=== PATIENT | female | born 1945 | race Hispanic/Latino ===

== ENCOUNTER → 2024-02-11 | Outpatient (CLI) | payer MEDICARE, MEDICAID ==
[~2024-02-11] MED LIST: AMLO1TAB24 PO; ELIQ5TAB PO; LISI40TA4 PO; METO1TAB32 PO; PRAV40TA2 PO; URSO1TAB8 PO
[2024-02-11 17:28] LABS: HEMATOCRIT 38.9 % (36.0-47.0); HEMOGLOBIN 12.6 g/dl (12.0-15.5); MEAN CORPUSCULAR HEMOGLOBIN 34.8 pg (27.0-33.0); MEAN CORPUSCULAR HGB CONC 32.4 g/dl (32.0-36.5); MEAN CORPUSCULAR VOLUME 107.5 fl (80.0-96.0); PLATELET COUNT, AUTOMATED 201 10^3/uL (150-450); RED BLOOD COUNT 3.62 10^6/uL (4.00-5.40); WHITE BLOOD COUNT 5.3 10^3/uL (4.0-10.0)
[2024-02-11 17:31] LABS: BILIRUBIN,TOTAL 0.5 MG/DL (0.3-1.2); CALCIUM LEVEL 9.2 MG/DL (8.3-10.6); CREATININE FOR GFR 1.39 MG/DL (0.55-1.30); GLOMERULAR FILTRATION RATE 38.8 (>32); POTASSIUM SERUM 4.4 MMOL/L (3.5-5.1); TOTAL PROTEIN 6.8 G/DL (5.7-8.2)
== END ==
LOC: M RAD 12:44
PROVIDERS: ATTEND Family Medicine Addiction Medicine
DX: M25.562 Pain in left knee (principal); M51.36 Other intervertebral disc degeneration, lumbar region; K74.60 Unspecified cirrhosis of liver; N18.30 Chronic kidney disease, stage 3 unspecified; M85.89 Other specified disorders of bone density and structure, multiple sites

== ENCOUNTER → 2024-03-06 | Outpatient (CLI) | payer MEDICARE, MEDICAID ==
[~2024-03-06] MED LIST changes: +LIDOCAINE 1% MDV 20ML VIAL As Ordered ONE
[2024-03-06 08:05] VITALS: TEMP 97.9
[2024-03-06 09:38] VITALS: BP 193/89; O2SAT 99
== END ==
LOC: M IRPRO 07:42
PROVIDERS: ATTEND Specialist
DX: C34.90 Malignant neoplasm of unspecified part of unspecified bronchus or lung (principal); R91.8 Other nonspecific abnormal finding of lung field

== ENCOUNTER 2024-05-06 10:09 | Emergency (ER) | payer MEDICARE, MEDICAID ==
[~2024-05-06 10:09] MED LIST changes: -LIDOCAINE 1% MDV 20ML VIAL As Ordered ONE
[2024-05-06 10:56] LABS: BASO % 0.4 % (0.0-1.0); EOS # 0.1 10^3/uL (0.0-0.5); HEMATOCRIT 34.7 % (36.0-47.0); HEMOGLOBIN 11.5 g/dl (12.0-15.5); LYMPH % 12.1 % (24.0-44.0); MEAN CORPUSCULAR HEMOGLOBIN 35.3 pg (27.0-33.0); MEAN CORPUSCULAR HGB CONC 33.1 g/dl (32.0-36.5); MEAN CORPUSCULAR VOLUME 106.4 fl (80.0-96.0); MONO # 0.8 10^3/uL (0.0-0.8); MONO % 9.4 % (2.0-8.0); NEUTROPHILS # 6.4 10^3/uL (1.5-8.5); NEUTROPHILS % 76.6 % (36.0-66.0); PLATELET COUNT, AUTOMATED 162 10^3/uL (150-450); RED BLOOD COUNT 3.26 10^6/uL (4.00-5.40); WHITE BLOOD COUNT 8.3 10^3/uL (4.0-10.0)
[2024-05-06 12:09] LABS: CK-MB VALUE MASS < 1.0 NG/ML (<3.6); LIPASE 21 U/L (12-53)
[2024-05-06 12:11] LABS: CPK CREATINE PHOSPHOKINASE 31 U/L (34-145); MB/CK RELATIVE INDEX 3.22 (< OR =4)
[2024-05-06 12:13] LABS: THYROID STIMULATING HORMONE 1.614 uIU/ML (0.55-4.78)
[2024-05-06 12:14] LABS: ALBUMIN 2.8 G/DL (3.2-5.2); ALKALINE PHOSPHATASE 138 U/L (35-104); ALT/SGPT 13 U/L (7.0-40); AST/SGOT 16 U/L (<34); BILIRUBIN,DIRECT 0.4 MG/DL (<0.4); BILIRUBIN,TOTAL 0.9 MG/DL (0.3-1.2); BLOOD UREA NITROGEN 29 MG/DL (9-23); CALCIUM LEVEL 9.2 MG/DL (8.3-10.6); CARBON DIOXIDE LEVEL 23 MMOL/L (20-31); CHLORIDE LEVEL 109 MMOL/L (98-107); GLOMERULAR FILTRATION RATE 45.9 (>32); GLUCOSE, FASTING 98 MG/DL (74-106); SODIUM LEVEL 141 MMOL/L (136-145); TOTAL PROTEIN 6.5 G/DL (5.7-8.2)
[2024-05-06] MEDS ORDERED: DOXY100C82 PO (13:12)
[2024-05-06 13:26] LABS: CK-MB VALUE MASS < 1.0 NG/ML (<3.6)
[2024-05-06 13:28] LABS: CPK CREATINE PHOSPHOKINASE 32 U/L (34-145); MB/CK RELATIVE INDEX 3.12 (< OR =4)
[2024-05-06 13:54] VITALS: BP 178/94; TEMP 100.1; O2SAT 95
== END 2024-05-06 14:20 | disposition home or self-care (01) ==
LOC: M ED 10:09 → EDBD 10:09 → M ED 14:20
DX: J18.9 Pneumonia, unspecified organism (principal); I48.91 Unspecified atrial fibrillation; E78.5 Hyperlipidemia, unspecified; I12.9 Hypertensive chronic kidney disease with stage 1 through stage 4 chronic kidney disease, or unspecified chronic kidney disease; Z91.048 Other nonmedicinal substance allergy status; Z79.01 Long term (current) use of anticoagulants; Z79.2 Long term (current) use of antibiotics; Z79.899 Other long term (current) drug therapy

== ENCOUNTER → 2024-05-14 | Outpatient (CLI) | payer MEDICARE, MEDICAID ==
[~2024-05-14] MED LIST changes: +DOXY100C82 PO
== END ==
LOC: M SOG 07:59
PROVIDERS: ATTEND Orthopaedic Surgery
DX: M25.562 Pain in left knee (principal); M87.852 Other osteonecrosis, left femur

== ENCOUNTER → 2024-05-15 | Outpatient (CLI) | payer MEDICARE, MEDICAID | LOC: M SOG 07:51 | PROVIDERS: ATTEND Orthopaedic Surgery | DX: M25.562 Pain in left knee (principal); M87.852 Other osteonecrosis, left femur; Z53.9 Procedure and treatment not carried out, unspecified reason ==

== ENCOUNTER 2024-05-22 12:53 | Inpatient (IN) | payer MEDICARE, MEDICAID ==
[~2024-05-22] VITALS: Ht 167.6 cm; Wt 80.7 kg
[2024-05-22 13:33] LABS: BASO % 0.8 % (0.0-1.0); EOS # 0.2 10^3/uL (0.0-0.5); EOS % 4.2 % (0.0-3.0); HEMATOCRIT 32.5 % (36.0-47.0); HEMOGLOBIN 10.5 g/dl (12.0-15.5); LYMPH # 1.2 10^3/uL (1.5-5.0); LYMPH % 26.1 % (24.0-44.0); MEAN CORPUSCULAR HGB CONC 32.3 g/dl (32.0-36.5); MEAN CORPUSCULAR VOLUME 108.3 fl (80.0-96.0); MONO # 0.6 10^3/uL (0.0-0.8); MONO % 12.4 % (2.0-8.0); NEUTROPHILS # 2.7 10^3/uL (1.5-8.5); NEUTROPHILS % 56.3 % (36.0-66.0); PLATELET COUNT, AUTOMATED 186 10^3/uL (150-450); WHITE BLOOD COUNT 4.8 10^3/uL (4.0-10.0)
[2024-05-22 13:52] LABS: LIPASE 20 U/L (12-53)
[2024-05-22 13:53] LABS: INR 1.26; PROTHROMBIN TIME 16.1 SECONDS (12.5-14.5)
[2024-05-22 13:54] LABS: CPK CREATINE PHOSPHOKINASE 28 U/L (34-145)
[2024-05-22 14:00] LABS: ALBUMIN 2.2 G/DL (3.2-5.2); ALKALINE PHOSPHATASE 118 U/L (35-104); ALT/SGPT < 9 U/L (7.0-40); AST/SGOT 16 U/L (<34); BILIRUBIN,DIRECT 0.2 MG/DL (<0.4); BILIRUBIN,TOTAL 0.3 MG/DL (0.3-1.2); BLOOD UREA NITROGEN 27 MG/DL (9-23); CALCIUM LEVEL 7.6 MG/DL (8.3-10.6); CARBON DIOXIDE LEVEL 21 MMOL/L (20-31); CHLORIDE LEVEL 116 MMOL/L (98-107); CK-MB VALUE MASS < 1.0 NG/ML (<3.6); CREATININE FOR GFR 1.17 MG/DL (0.55-1.30); FREE T4 0.94 NG/DL (0.89-1.76); GLOMERULAR FILTRATION RATE 47.3 (>32); GLUCOSE, FASTING 79 MG/DL (74-106); MB/CK RELATIVE INDEX 3.57 (< OR =4); POTASSIUM SERUM 3.7 MMOL/L (3.5-5.1); SODIUM LEVEL 146 MMOL/L (136-145); THYROID STIMULATING HORMONE 2.423 uIU/ML (0.55-4.78); TOTAL PROTEIN 5.7 G/DL (5.7-8.2)
[2024-05-22] MEDS ORDERED: ISOVUE-370 76% 100ML VIAL As Ordered ONE (14:24)
[2024-05-22 14:48] LABS: CK-MB VALUE MASS < 1.0 NG/ML (<3.6)
[2024-05-22 14:53] LABS: CPK CREATINE PHOSPHOKINASE 32 U/L (34-145); MB/CK RELATIVE INDEX 3.12 (< OR =4)
[2024-05-22] MEDS: FUROSEMIDE 40MG/4ML VIAL IV ONE (16:25)
[2024-05-22] MEDS: LevoFLOXacin IV 750 MG in IV 1 EA IV ONE (16:28)
[2024-05-22] MEDS ORDERED: HOME MED LIST COMPLETE! XX SCH (16:50)
[2024-05-22] MEDS: APIXABAN 5 MG TAB (ELIQUIS) PO SCH (21:30)
[2024-05-22] MEDS: PRAVASTATIN 20 MG TAB PO SCH (21:30)
[2024-05-23] VITALS (19 sets, daily range): BP systolic 107–160; BP diastolic 55–84; TEMP 97.4–98; O2SAT 93–100
[2024-05-23] MEDS: FUROSEMIDE 40MG/4ML VIAL IV SCH (04:28)
[2024-05-23] MEDS: METOPROLOL TART 25 MG TABLET PO SCH (09:00)
[2024-05-23 09:21] LABS: HEMOGLOBIN 12.2 g/dl (12.0-15.5); MEAN CORPUSCULAR HEMOGLOBIN 35.1 pg (27.0-33.0); MEAN CORPUSCULAR VOLUME 106.3 fl (80.0-96.0); PLATELET COUNT, AUTOMATED 198 10^3/uL (150-450); RED BLOOD COUNT 3.48 10^6/uL (4.00-5.40); WHITE BLOOD COUNT 5.6 10^3/uL (4.0-10.0)
[2024-05-23] MEDS: lisinopriL 40MG TAB PO SCH (09:25)
[2024-05-23] MEDS: METOPROLOL SUCC *XL* 25MG TAB (TopROL *XL*) PO SCH (09:25)
[2024-05-23] MEDS: amLODIPine 5 MG TAB PO SCH (09:25)
[2024-05-23 09:33] LABS: CALCIUM LEVEL 9.6 MG/DL (8.3-10.6); CREATININE FOR GFR 1.41 MG/DL (0.55-1.30); GLOMERULAR FILTRATION RATE 38.1 (>32); POTASSIUM SERUM 4.3 MMOL/L (3.5-5.1)
[2024-05-23] MEDS ORDERED: METOPROLOL 5 MG/5 ML VIAL IV PRN (09:40)
[2024-05-23] MEDS: LevoFLOXacin IV 750 MG in IV 1 EA IV SCH (20:22)
[2024-05-23] MEDS ORDERED: LevoFLOXacin 750 MG TABLET PO SCH (21:00)
[2024-05-24] VITALS (12 sets, daily range): BP systolic 95–129; BP diastolic 52–91; TEMP 97.4–97.7; O2SAT 93–99
[2024-05-24 05:31] LABS: HEMOGLOBIN 11.5 g/dl (12.0-15.5); MEAN CORPUSCULAR HGB CONC 32.9 g/dl (32.0-36.5); MEAN CORPUSCULAR VOLUME 106.4 fl (80.0-96.0); PLATELET COUNT, AUTOMATED 194 10^3/uL (150-450); RED BLOOD COUNT 3.29 10^6/uL (4.00-5.40); WHITE BLOOD COUNT 5.6 10^3/uL (4.0-10.0)
[2024-05-24 05:52] LABS: CALCIUM LEVEL 9.2 MG/DL (8.3-10.6); CREATININE FOR GFR 1.77 MG/DL (0.55-1.30); GLOMERULAR FILTRATION RATE 29.3 (>32); POTASSIUM SERUM 4.6 MMOL/L (3.5-5.1)
[2024-05-24] MEDS: FUROSEMIDE 40MG/4ML VIAL IV SCH (06:25)
[2024-05-24] MEDS ORDERED: LEVO75TAB PO (11:40)
[2024-05-24] MEDS ORDERED: TORS10TA3 PO (11:41)
== END 2024-05-24 13:16 | disposition home health service (06) | DRG 193 ==
LOC: EDBD 12:53 → M ED 12:53 → M ED INP 18:45 → M PCU 05-23 08:43
PROVIDERS: ADMIT Student in an Organized Health Care Education/Training Program; ATTEND Student in an Organized Health Care Education/Training Program
DX: J18.9 Pneumonia, unspecified organism (principal); I50.33 Acute on chronic diastolic (congestive) heart failure; I13.0 Hypertensive heart and chronic kidney disease with heart failure and stage 1 through stage 4 chronic kidney disease, or unspecified chronic kidney disease; N17.9 Acute kidney failure, unspecified; D63.8 Anemia in other chronic diseases classified elsewhere; I48.91 Unspecified atrial fibrillation; M17.12 Unilateral primary osteoarthritis, left knee; N18.30 Chronic kidney disease, stage 3 unspecified; Z85.118 Personal history of other malignant neoplasm of bronchus and lung; I27.20 Pulmonary hypertension, unspecified; Z79.01 Long term (current) use of anticoagulants; Z79.899 Other long term (current) drug therapy; Z91.048 Other nonmedicinal substance allergy status; Z92.21 Personal history of antineoplastic chemotherapy; Z92.3 Personal history of irradiation; Z87.891 Personal history of nicotine dependence

== ENCOUNTER → 2024-08-13 | Outpatient (CLI) | payer MEDICARE, MEDICAID ==
[~2024-08-13] MED LIST changes: +DOXY-442 PO; -DOXY100C82 PO; +LEVO75TAB PO; +TORS10TA3 PO
== END ==
LOC: M RAD 15:38
PROVIDERS: ATTEND Internal Medicine Medical Oncology
DX: C34.90 Malignant neoplasm of unspecified part of unspecified bronchus or lung (principal); N18.9 Chronic kidney disease, unspecified

== ENCOUNTER → 2024-09-29 | Outpatient (CLI) | payer MEDICARE, MEDICAID | LOC: M RAD 14:46 | PROVIDERS: ATTEND Family Medicine Addiction Medicine | DX: M54.50 Low back pain, unspecified (principal) ==

== ENCOUNTER → 2024-10-14 | Outpatient (CLI) | payer MEDICARE, MEDICAID | LOC: M RAD 14:46 | PROVIDERS: ATTEND Internal Medicine Pulmonary Disease | DX: R91.8 Other nonspecific abnormal finding of lung field (principal); C34.90 Malignant neoplasm of unspecified part of unspecified bronchus or lung; R93.1 Abnormal findings on diagnostic imaging of heart and coronary circulation ==

== ENCOUNTER → 2024-10-14 | Outpatient (CLI) | payer MEDICARE, MEDICAID ==
[~2024-10-14] MED LIST changes: +ISOVUE-370 76% 100ML VIAL As Ordered ONE
== END ==
LOC: M RAD 14:50
PROVIDERS: ATTEND Physician Assistant
DX: R05.1 Acute cough (principal)

== ENCOUNTER → 2024-10-14 | Outpatient (CLI) | payer MEDICARE, MEDICAID ==
[~2024-10-14] MED LIST changes: -ISOVUE-370 76% 100ML VIAL As Ordered ONE
== END ==
LOC: M RAD 14:44
PROVIDERS: ATTEND Internal Medicine Medical Oncology
DX: C34.90 Malignant neoplasm of unspecified part of unspecified bronchus or lung (principal); R91.8 Other nonspecific abnormal finding of lung field; R93.1 Abnormal findings on diagnostic imaging of heart and coronary circulation; R05.1 Acute cough
CPT/HCPCS: 71046; 71250; 71260; 74177; Q9967

== ENCOUNTER → 2025-03-03 | Outpatient (CLI) | payer MEDICAID, MEDICARE ==
[~2025-03-03] MED LIST changes: +LISI40TA10 PO; -LISI40TA4 PO; -PRAV40TA2 PO; +PRAV40TA85 PO; +URSO1TAB2 PO; -URSO1TAB8 PO
== END ==
LOC: M RAD 16:42
PROVIDERS: ATTEND Internal Medicine Medical Oncology
DX: C34.11 Malignant neoplasm of upper lobe, right bronchus or lung (principal)